=== PATIENT | male | born 1965 | race Caucasian/White ===

== ENCOUNTER 2024-02-24 17:40 | Emergency (ER) | payer BC ==
[~2024-02-24] VITALS: Ht 185.4 cm; Wt 127.0 kg
[2024-02-24] MEDS ORDERED: FentaNYL Citrate 50 MCG/ML 2 ML Injection IM ONE (18:25)
== END 2024-02-24 20:18 | disposition home or self-care (01) ==
LOC: ER 17:40
DX: S82.851A Displaced trimalleolar fracture of right lower leg, initial encounter for closed fracture (principal); W16.112A Fall into natural body of water striking water surface causing other injury, initial encounter
CPT/HCPCS: 29515; 73610; 99283-25; J3010